=== PATIENT | female | born 1985 | race African-American/Black ===

== ENCOUNTER 2018-06-13 05:10 | Emergency (ER) | payer BC, OTHER ==
[~2018-06-13] VITALS: Ht 162.6 cm; Wt 70.8 kg
[2018-06-13 05:26] LABS: URINE BILIRUBIN NEGATIVE (Negative); URINE BLOOD 3+ (Negative); URINE CLARITY CLEAR; URINE COLOR YELLOW; URINE GLUCOSE-RANDOM* NEGATIVE (Negative); URINE KETONES NEGATIVE (Negative); URINE LEUKOCYTES-REFLEX NEGATIVE (Negative); URINE NITRITE-REFLEX NEGATIVE (Negative); URINE PROTEIN (DIPSTICK) TRACE (Negative); URINE SPECIFIC GRAVITY 1.025 (1.005-1.035); URINE UROBILINOGEN 0.2 E.U./dl (0.2-1.0)
[2018-06-13] MEDS ORDERED: NAPROSYN500 MG PO ×2 (05:27→08:13)
[2018-06-13] MEDS ORDERED: GABAPENTIN 100100 MG PO (05:27)
[2018-06-13] MEDS ORDERED: XULANE PATCH1 EACH TOP (05:28)
[2018-06-13] MEDS ORDERED: ORPHENADRINE C100 M2 PO (05:29)
[2018-06-13 05:37] LABS: BACTERIA-REFLEX None Seen /HPF (None Seen); CASTS None Seen /LPF (None Seen); MUCUS None Seen strn/LPF (None Seen); SQUAMOUS 0-3 Few /LPF (0-3); URINE RBC 3-10 Few /HPF (0-2); URINE WBC-REFLEX None Seen /HPF (0-5)
[2018-06-13 05:38] LABS: CRYSTALS None Seen /LPF (None Seen)
[2018-06-13 05:52] LABS: ABSOLUTE NEUTROPHILS 8.4 thou/uL (1.4-8.2); BASOPHILS 0.7 % (0.0-2.0); EOSINOPHILS 0.7 % (0.0-3.0); HEMATOCRIT 44.3 % (37.0-47.0); HEMOGLOBIN 14.9 gm/dL (12.0-15.0); LYMPHOCYTES 18.9 % (24.0-44.0); MCHC 33.7 g/dL (28.0-37.0); MCV 83.2 fL (80.0-100.0); MONOCYTES 3.9 % (1.0-8.0); PLATELET COUNT 293 thou/uL (150-400); POLYS 75.8 % (36.0-66.0); RBC 5.32 mil/uL (4.20-5.00); RDW 12.8 % (10.5-14.5); WBC 11.1 thou/uL (4.0-11.0)
[2018-06-13 05:58] LABS: CREATININE 0.7 mg/dL (0.6-1.0)
[2018-06-13] MEDS ORDERED: TRAMADOL 50 MG50 MG PO (08:13)
[2018-06-13] MEDS ORDERED: ZOFRAN ODT4 MG DISSOLVE (08:13)
[2018-06-13 08:50] VITALS: BP 171/104
== END 2018-06-13 08:45 | disposition home or self-care (01) ==
LOC: ER 05:10
PROVIDERS: Student in an Organized Health Care Education/Training Program
DX: K52.9 Noninfective gastroenteritis and colitis, unspecified (principal); N94.6 Dysmenorrhea, unspecified; F17.210 Nicotine dependence, cigarettes, uncomplicated